=== PATIENT | male | born 1975 | race Caucasian/White ===

== ENCOUNTER 2016-12-05 17:21 | Emergency (ER) | payer BC ==
[~2016-12-05] VITALS: Ht 170.2 cm; Wt 90.1 kg
[2016-12-05] MEDS ORDERED: CILOXAN 0.1 APPLICAT RIGHT EYE (19:24)
[2016-12-05 19:32] VITALS: BP 118/83
== END 2016-12-05 19:38 | disposition home or self-care (01) ==
LOC: EME 17:21
PROC: 08C0XZZ Extirpation of Matter from Right Eye, External Approach (ICD-10-PCS; principal; 2016-12-05)
DX: T15.91XA Foreign body on external eye, part unspecified, right eye, initial encounter (principal); X58.XXXA Exposure to other specified factors, initial encounter; Y99.0 Civilian activity done for income or pay
CPT/HCPCS: 99281; 99283